=== PATIENT | female | born 1960 | race Caucasian/White ===

== ENCOUNTER → 2017-12-31 10:33 | Outpatient (CLI) | payer OTHER, SELFPAY ==
--- NOTE | 2017-12-31 | DI.MG.S_ITS ---
BILATERAL DIGITAL SCREENING MAMMOGRAM 3D/2D WITH CAD: 12/31/2017 CLINICAL: Routine screening. Family history of breast cancer. Comparison is made to exams dated: 04/06/2015 mammogram - [facility], 07/13/2009 mammogram, and 06/29/2009 mammogram - [facility]. There are scattered fibroglandular elements in both breasts. Current study was also evaluated with a Computer Aided Detection (CAD) system. No significant masses, calcifications, or other findings are seen in either breast. There has been no significant interval change. IMPRESSION: NEGATIVE There is no mammographic evidence of malignancy. A 1 year screening mammogram is recommended. This exam was interpreted at Station ID: [id number]. NOTE: For mammograms, a report in lay terms will be sent to the patient. Approximately 15% of breast malignancies will not be visualized mammographically. In the management of a palpable breast mass, a negative mammogram must not discourage biopsy of a clinically suspicious lesion. Electronically Signed By: Whitney buchanan/jhonatan:12/31/2017 12:46:40 letter sent: Normal Exam ACR BI-RADS Category 1: Negative 3341F
== END ==
PROVIDERS: PCP Nurse Practitioner Women's Health; Visit Provider Nurse Practitioner Women's Health
DX: Z12.31 Encounter for screening mammogram for malignant neoplasm of breast (principal); Z80.3 Family history of malignant neoplasm of breast
CPT/HCPCS: 77063; 77067

== ENCOUNTER → 2018-02-26 08:01 | Outpatient (CLI) | payer OTHER, SELFPAY ==
--- NOTE | 2018-02-26 | DI.MRI.S_ITS ---
PROCEDURE: MR FEMUR LT WO CON INDICATIONS: TROCHANTERIC BURSITIS OF LEFT HIP TECHNIQUE: Noncontrast coronal and sagittal T1 spin echo and STIR; axial T1 spin echo and T2 fast spin echo with fat saturation through the femur. COMPARISON: [facility], CR, XR PELVIS WITH BILATERAL HIPS 5 VIEWS, 02/10/2018, 9:02. FINDINGS: Image quality: Excellent. Bones: The visualized bone marrow demonstrates normal signal on all sequences. The overlying cortex appears intact. No fractures lines or intra-osseous lesions. Soft tissues: There is minimal left trochanteric bursal fluid/edema. The scanned muscles demonstrate normal overall bulk and internal signal. No soft tissue masses are present. IMPRESSION: Minimal left trochanteric bursal fluid/edema. Recommend clinical correlation. The Dictated by: Neri Rubio M.D. on 02/26/2018 at 8:01 Approved by: Neri Rubio M.D. on 02/26/2018 at 8:37
== END ==
PROVIDERS: PCP Nurse Practitioner Women's Health; Visit Provider Orthopaedic Surgery
DX: M70.62 Trochanteric bursitis, left hip (principal)
CPT/HCPCS: 73718

== ENCOUNTER → 2019-02-10 09:51 | Outpatient (CLI) | payer OTHER, SELFPAY ==
--- NOTE | 2019-02-10 | DI.RAD.S_ITS ---
PROCEDURE: XR WRIST RT 2V INDICATIONS: bilateral carpal tunnel TECHNIQUE: 2 views of the wrist were acquired. COMPARISON: [facility], CR, XR WRIST LT 2V, 02/10/2019, 10:19. FINDINGS: Bones: No fractures or dislocations. No suspicious bony lesions. Mild degenerative joint disease at the radiocarpal joint. Soft tissues: No suspicious soft tissue calcifications. Soft tissue swelling around the wrist. IMPRESSION: Mild degenerative joint disease. Dictated by: Jesse Lombardi M.D. on 02/10/2019 at 11:13 Approved by: Jesse Lombardi M.D. on 02/10/2019 at 11:14
--- NOTE | 2019-02-10 | DI.RAD.S_ITS ---
PROCEDURE: XR WRIST LT 2V INDICATIONS: bilateral carpal tunnel TECHNIQUE: 2 views of the wrist were acquired. COMPARISON: [facility], CR, XR HAND LT 2V, 02/10/2019, 10:18. FINDINGS: Bones: No fractures or dislocations. No suspicious bony lesions. Mild radiocarpal and first carpal metacarpal joint degeneration. Soft tissues: No suspicious soft tissue calcifications. IMPRESSION: Mild degenerative joint disease. Dictated by: Jesse Lombardi M.D. on 02/10/2019 at 11:17 Approved by: Jesse Lombardi M.D. on 02/10/2019 at 11:18
--- NOTE | 2019-02-10 | DI.RAD.S_ITS ---
PROCEDURE: XR HAND RT 2V INDICATIONS: bilateral carpal tunnel TECHNIQUE: 2 views of the hand(s) acquired. COMPARISON: [facility], CR, XR WRIST RT 2V, 02/10/2019, 10:16. FINDINGS: Bones: No fractures or dislocations. Carpal bones are normally aligned. No suspicious bony lesions. There is mild radiocarpal joint degeneration. Soft tissues: No suspicious soft tissue calcifications. IMPRESSION: Mild degenerative joint disease. Dictated by: Jesse Lombardi M.D. on 02/10/2019 at 11:18 Approved by: Jesse Lombardi M.D. on 02/10/2019 at 11:19
--- NOTE | 2019-02-10 | DI.RAD.S_ITS ---
PROCEDURE: XR HAND LT 2V INDICATIONS: bilateral carpal tunnel TECHNIQUE: 2 views of the hand(s) acquired. COMPARISON: [facility], CR, XR WRIST LT 2V, 02/10/2019, 10:19. FINDINGS: Bones: No fractures or dislocations. Carpal bones are normally aligned. No suspicious bony lesions. Mild radiocarpal joint degeneration. Soft tissues: No suspicious soft tissue calcifications. IMPRESSION: Mild degenerative joint disease. Dictated by: Jesse Lombardi M.D. on 02/10/2019 at 11:14 Approved by: Jesse Lombardi M.D. on 02/10/2019 at 11:15
[2019-02-10 10:58] LABS: Add Manual Diff / Slide Review NO; Basophils Absolute Auto 0 /uL (0-100); Basophils Percent Auto 0.4 % (0-2); Eosinophils Absolute Auto 100 /uL (0-450); Eosinophils Percent Auto 1.8 % (2-4); Hematocrit 43.7 % (36-46); Hemoglobin 14.5 g/dL (12.0-16.0); Lymphocytes Absolute Auto 1400 /uL (1100-4500); Lymphocytes Percent Auto 28.5 % (25-40); Mean Corpuscular HGB Conc 33.1 % (30-36); Mean Corpuscular Hemoglobin 30.4 PG (26-34); Mean Corpuscular Volume 91.8 fL (80-100); Monocytes Absolute Auto 300 /uL (0-900); Monocytes Percent Auto 5.7 % (3-14); Neutrophils Absolute Auto 3200 /uL (1500-7000); Neutrophils Percent Auto 63.6 % (50-75); Platelet Count 205 X10^3/uL (150-400); Red Blood Cell Count 4.77 X10^6/uL (4.0-5.2); Red Cell Distribution Width 14.1 % (11.6-14.8)
[2019-02-10 11:12] LABS: Alanine Aminotransferase 19 IU/L (9-52); Albumin 4.9 g/dL (3.5-5.0); Albumin Globulin Ratio 1.8 (1.0-2.8); Alkaline Phosphatase 68 U/L (38-126); Aspartate Aminotransferase 23 IU/L (14-36); BUN Creatinine Ratio 28.8 (6-22); Bilirubin Total 0.5 mg/dL (0.2-1.3); Blood Urea Nitrogen 23 mg/dL (7-17); C-Reactive Protein Quant 0.6 mg/dL (<1.0); Carbon Dioxide 28 mmol/L (22-32); Chloride 103 mmol/L (98-107); Cholesterol 249 mg/dL (140-199); Estimated Glomerular Filt Rate > 60.0 mL/min (>60); Globulin 2.8 g/dL (1.7-4.1); Glucose 81 mg/dL (80-110); HDL Cholesterol 84 mg/dL (40-60); HEMOLYSIS < 15 (0-50); LDL Cholesterol Calculated 155 mg/dL (<100); Potassium 4.5 mmol/L (3.4-5.1); Sodium 142 mmol/L (137-145); Total Protein 7.7 g/dL (6.3-8.2); Triglycerides 48 mg/dL (35-150)
[2019-02-10 11:15] LABS: Rheumatoid Factor < 8.6 IU/mL (<12.0)
[2019-02-10 11:27] LABS: Erythrocyte Sedimentation Rate 5 MM/HR (0-20)
== END ==
PROVIDERS: PCP Internal Medicine; Visit Provider Internal Medicine
DX: I10 Essential (primary) hypertension (principal); M25.539 Pain in unspecified wrist; R00.2 Palpitations; G56.03 Carpal tunnel syndrome, bilateral upper limbs; Z13.220 Encounter for screening for lipoid disorders
CPT/HCPCS: 36415; 73100; 73120; 80053; 80061; 85025; 85651; 86140; 86200; 86430

== ENCOUNTER → 2021-12-22 12:00 | Outpatient (CLI) | payer OTHER, SELFPAY ==
[2021-12-22 13:13] LABS: Hematocrit 42.2 % (36-46); Hemoglobin 14.2 g/dL (12.0-16.0); Mean Corpuscular HGB Conc 33.7 % (30-36); Mean Corpuscular Hemoglobin 31.2 PG (26-34); Mean Corpuscular Volume 92.6 fL (80-100); Platelet Count 243 X10^3/uL (150-400); Red Blood Cell Count 4.56 X10^6/uL (4.0-5.2); White Blood Cell Count 8.3 X10^3/uL (4.5-11.0)
[2021-12-22 13:55] LABS: Alanine Aminotransferase 20 IU/L (<35); Albumin Globulin Ratio 1.9 (1.0-2.8); Alkaline Phosphatase 72 U/L (38-126); Aspartate Aminotransferase 25 IU/L (14-36); BUN Creatinine Ratio 26.6 (6-22); Bilirubin Total 0.3 mg/dL (0.2-1.3); Blood Urea Nitrogen 21 mg/dL (7-17); Calcium 9.7 mg/dL (8.4-10.2); Carbon Dioxide 26 mmol/L (22-32); Chloride 105 mmol/L (98-107); Cholesterol 230 mg/dL (140-199); Estimated Glomerular Filt Rate > 60 mL/min (>60); Globulin 2.7 g/dL (1.7-4.1); Glucose 108 mg/dL (80-110); HDL Cholesterol 99 mg/dL (40-60); HEMOLYSIS < 15 (0-50); LDL Cholesterol Calculated 107 mg/dL (<100); Potassium 4.7 mmol/L (3.4-5.1); Sodium 140 mmol/L (137-145); Total Protein 7.7 g/dL (6.3-8.2); Triglycerides 120 mg/dL (35-150)
[2021-12-22 15:03] LABS: TSH w/ Reflex to FT4 0.89 uIU/mL (0.47-4.68)
== END ==
PROVIDERS: PCP Internal Medicine; Referring Provider Internal Medicine; Visit Provider Internal Medicine
DX: F33.9 Major depressive disorder, recurrent, unspecified (principal); I10 Essential (primary) hypertension
CPT/HCPCS: 36415; 80053; 80061; 84443; 85027

== ENCOUNTER → 2022-02-14 09:28 | Outpatient (CLI) | payer OTHER, SELFPAY ==
--- NOTE | 2022-02-14 | DI.MRI.S_ITS ---
PROCEDURE: MR SHOULDER RT WO CON INDICATIONS: Pain in right shoulder TECHNIQUE: Noncontrast oblique coronal T2 fast spin echo with fat saturation, oblique sagittal T1 spin echo and T2 fast spin echo with fat saturation, axial T1 spin echo and T2 fast spin echo with fat saturation through the shoulder. COMPARISON: [facility], CR, XR SHOULDER 2+ VIEWS RIGHT, 11/22/2021, 10:06. FINDINGS: Image quality: Excellent. Rotator cuff: The supraspinatus, infraspinatus, and subscapularis tendons appear intact throughout. Sagittal images demonstrate no muscle atrophy. Bones and bursae: Mild reactive signal within the anterior glenoid. No bone marrow contusions or fractures. Mild acromioclavicular joint degeneration. The acromion demonstrates conventional anatomy, without an os acromiale. A small amount of subacromial-subdeltoid or subcoracoid bursal fluid is present. Capsule and soft tissues: There is vague undercutting of the anterosuperior and anteroinferior labrum. The long head of the biceps tendon demonstrates normal location and morphology. The rotator interval appears normal, without fibrosis. The coracohumeral ligament is normal in thickness. IMPRESSION: 1. No rotator cuff tear. 2. Acromioclavicular joint osteoarthritis. 3. Findings suggestive of anterior labral tearing. 4. Mild subacromial bursitis. Dictated by: Mitch Acosta M.D. on 02/14/2022 at 11:17 Approved by: Mitch Acosta M.D. on 02/14/2022 at 11:19
== END ==
PROVIDERS: PCP Internal Medicine; Referring Provider Orthopaedic Surgery; Visit Provider Orthopaedic Surgery
DX: M19.011 Primary osteoarthritis, right shoulder (principal); M75.51 Bursitis of right shoulder; M25.511 Pain in right shoulder
CPT/HCPCS: 73221

== ENCOUNTER → 2022-03-16 16:04 | Outpatient (CLI) | payer OTHER, SELFPAY ==
[2022-03-16 17:43] LABS: BUN Creatinine Ratio 23.5 (6-22); Blood Urea Nitrogen 23 mg/dL (7-17); Calcium 9.8 mg/dL (8.4-10.2); Carbon Dioxide 31 mmol/L (22-32); Chloride 101 mmol/L (98-107); Estimated Glomerular Filt Rate > 60 mL/min (>60); Glucose 103 mg/dL (80-110); HEMOLYSIS < 15 (0-50); Potassium 4.9 mmol/L (3.4-5.1); Sodium 139 mmol/L (137-145)
== END ==
PROVIDERS: PCP Internal Medicine; Referring Provider Internal Medicine; Visit Provider Internal Medicine
DX: I10 Essential (primary) hypertension (principal)
CPT/HCPCS: 36415; 80048

== ENCOUNTER → 2022-05-21 15:33 | Outpatient (CLI) | payer OTHER, SELFPAY ==
--- NOTE | 2022-05-21 | DI.MG.S_ITS ---
BILATERAL DIGITAL SCREENING MAMMOGRAM 3D/2D WITH CAD: 05/21/2022 CLINICAL: Routine screening. Family history of breast cancer. Comparison is made to exams dated: 12/31/2017 mammogram, 04/06/2015 mammogram - [facility], and 07/13/2009 mammogram - [facility]. There are scattered areas of fibroglandular density in both breasts (category b / 25%-50% glandular tissue). Current study was also evaluated with a Computer Aided Detection (CAD) system. No significant masses, calcifications, or other findings are seen in either breast. There has been no significant interval change. IMPRESSION: NEGATIVE There is no mammographic evidence of malignancy. A 1 year screening mammogram is recommended. Based on the Tyrer Cuzick model (a risk assessment model) the patient's lifetime risk is 9.3% and her 10 year risk is 4.2%. According to the ACR, ACS, and NCCN guidelines, an annual breast MRI exam along with mammogram is recommended if the patient's lifetime risk is 20% or greater. This exam was interpreted at Station ID: [id number]. NOTE: For mammograms, a report in lay terms will be sent to the patient. Approximately 15% of breast malignancies will not be visualized mammographically. In the management of a palpable breast mass, a negative mammogram must not discourage biopsy of a clinically suspicious lesion. Electronically Signed By: Whitney buchanan/jhonatan:05/23/2022 13:19:35 letter sent: Normal Exam ACR BI-RADS Category 1: Negative 3341F
== END ==
PROVIDERS: PCP Internal Medicine; Referring Provider Internal Medicine; Visit Provider Internal Medicine
DX: Z12.31 Encounter for screening mammogram for malignant neoplasm of breast (principal); Z80.3 Family history of malignant neoplasm of breast
CPT/HCPCS: 77063; 77067

== ENCOUNTER → 2024-03-05 16:16 | Outpatient (CLI) | payer OTHER, SELFPAY ==
[2024-03-05 17:31] LABS: Aspartate Aminotransferase 24 IU/L (14-36); BUN Creatinine Ratio 34.9 (6-22); Blood Urea Nitrogen 30 mg/dL (7-17); Calcium 9.7 mg/dL (8.4-10.2); Carbon Dioxide 25 mmol/L (22-32); Chloride 106 mmol/L (98-107); Cholesterol 217 mg/dL (140-199); Estimated Glomerular Filt Rate > 60 mL/min (>60); Glucose 101 mg/dL (80-110); HDL Cholesterol 77 mg/dL (40-60); HEMOLYSIS < 15 (0-50); LDL Cholesterol Calculated 121 mg/dL (<100); Potassium 4.5 mmol/L (3.4-5.1); Sodium 138 mmol/L (137-145); Triglycerides 94 mg/dL (35-150)
[2024-03-05 18:03] LABS: TSH w/ Reflex to FT4 1.04 uIU/mL (0.47-4.68)
== END ==
PROVIDERS: PCP Internal Medicine; Referring Provider Internal Medicine; Visit Provider Internal Medicine
DX: E78.2 Mixed hyperlipidemia (principal); I87.2 Venous insufficiency (chronic) (peripheral)
CPT/HCPCS: 36415; 80048; 80061; 84443; 84450

== ENCOUNTER → 2024-04-03 09:11 | Outpatient (CLI) | payer OTHER, SELFPAY ==
--- NOTE | 2024-04-03 09:12 | DI.MG.S_ITS ---
BILATERAL DIGITAL SCREENING MAMMOGRAM 3D/2D WITH CAD: 04/03/2024 CLINICAL: Routine screening. Family history of breast cancer. Comparison is made to exams dated: 05/21/2022 mammogram, 12/31/2017 mammogram, and 04/06/2015 mammogram - [facility]. There are scattered areas of fibroglandular density in both breasts (category b / 25%-50% glandular tissue). Current study was also evaluated with a Computer Aided Detection (CAD) system. No significant masses, calcifications, or other findings are seen in either breast. There has been no significant interval change. IMPRESSION: NEGATIVE There is no mammographic evidence of malignancy. A 1 year screening mammogram is recommended. Based on the Tyrer Cuzick model (a risk assessment model) the patient's lifetime risk is 8.6% and her 10 year risk is 4.2%. According to the ACR, ACS, and NCCN guidelines, an annual breast MRI exam along with mammogram is recommended if the patient's lifetime risk is 20% or greater. This exam was interpreted at Station ID: [id number]. NOTE: For mammograms, a report in lay terms will be sent to the patient. Approximately 15% of breast malignancies will not be visualized mammographically. In the management of a palpable breast mass, a negative mammogram must not discourage biopsy of a clinically suspicious lesion. Electronically Signed By: Pepe powell/jhonatan:04/03/2024 14:28:13 letter sent: Normal Exam ACR BI-RADS Category 1: Negative 3341F
== END ==
LOC: MAMMO 09:11
PROVIDERS: PCP Internal Medicine; Referring Provider Internal Medicine; Visit Provider Internal Medicine
DX: Z12.31 Encounter for screening mammogram for malignant neoplasm of breast (principal); Z80.3 Family history of malignant neoplasm of breast
CPT/HCPCS: 77063; 77067

== ENCOUNTER → 2025-03-08 16:19 | Outpatient (CLI) | payer OTHER, SELFPAY ==
[2025-03-08 19:02] LABS: Blood Urea Nitrogen 26 mg/dL (7-17); Calcium 9.7 mg/dL (8.4-10.2); Carbon Dioxide 30 mmol/L (22-32); Chloride 100 mmol/L (98-107); Cholesterol 219 mg/dL (140-199); Estimated Glomerular Filt Rate > 60 mL/min (>60); Glucose 82 mg/dL (70-99); HDL Cholesterol 76 mg/dL (40-60); HEMOLYSIS < 15 (0-50); Potassium 4.5 mmol/L (3.4-5.1); Sodium 138 mmol/L (137-145); Triglycerides 77 mg/dL (35-150)
== END ==
PROVIDERS: PCP Internal Medicine; Referring Provider Internal Medicine; Visit Provider Internal Medicine
DX: I10 Essential (primary) hypertension (principal); E78.2 Mixed hyperlipidemia
CPT/HCPCS: 36415; 80048; 80061; 84450

== ENCOUNTER → 2025-04-14 08:09 | Outpatient (CLI) | payer OTHER, SELFPAY ==
--- NOTE | 2025-04-14 08:10 | DI.MG.S_ITS ---
MM screening mammo BI: 04/14/2025. BI-RADS: 1 CLINICAL: 64-year old female for bilateral screening mammogram. Tyrer-Cuzick lifetime risk of 8.2%. No personal or first-degree family history of breast cancer. Current reported family history of breast cancer: maternal aunt. PRIOR EXAMS 04/03/2024, 05/21/2022, 12/31/2017. MAMMOGRAPHY TECHNIQUE: 2D and 3D (tomosynthesis) digital mammographic views obtained, with additional images as needed for full coverage. Current study was also evaluated with a Computer Aided Detection (CAD) system. DENSITY B. There are scattered areas of fibroglandular density. MAMMOGRAPHY FINDINGS Bilateral: No suspicious mass, asymmetry, microcalcification, or other abnormality seen. IMPRESSION: * No evidence of malignancy. RECOMMENDATIONS Bilateral * Annual screening mammography. OVERALL ASSESSMENT CATEGORY BI-RADS-1: Negative. The [employer] recommends annual screening mammography beginning at age 40 for women with average risk of breast cancer. ELECTRONICALLY SIGNED: Violetta Tuttle M.D. on 04/14/2025 at 12:35:17 PM PT Interpreting Station ID: [id number]
== END ==
LOC: MAMMO 08:10
PROVIDERS: PCP Internal Medicine; Referring Provider Internal Medicine; Visit Provider Internal Medicine
DX: Z12.31 Encounter for screening mammogram for malignant neoplasm of breast (principal); Z80.3 Family history of malignant neoplasm of breast
CPT/HCPCS: 77063; 77067

== ENCOUNTER 2025-04-21 09:46 | Day surgery (SDC) | payer OTHER, SELFPAY ==
[2025-04-21 10:12] VITALS: BP 148/88; PULSE 92; RESP 16; TEMP 36.8; O2SAT 95
[2025-04-21] MEDS: LACTATED RINGERS 1,000 ML 42 ML IV (10:31)
--- NOTE | 2025-04-21 10:41 | PM.HP.IH.1 ---
History of Present Illness History of Present Illness Date Patient Seen: 04/21/25 Chief complaint: SDC Narrative: First screening colonoscopy [facility] Medical History Carpal tunnel syndrome Depression, major, recurrent Essential hypertension Fractures Gastric ulcer (~2008) GERD without esophagitis Migraines Mixed hyperlipidemia Obesity (BMI 30.0-34.9) Overweight Primary osteoarthritis involving multiple joints Varicose veins of bilateral lower extremities with pain Venous (peripheral) insufficiency Surgical History Anesthesia Status post rotator cuff repair Family History Father Cancer Mother Cancer Hypertension Brother Diabetes mellitus Brother History of heart disease Social History details: (Pascual, 12/27/2022), daughter Smoking Status: Never smoker alcohol intake: current Meds Home Medications and Allergies Home Medications ?Medication ?Instructions ?Recorded ?Confirmed ?Type celecoxib 200 mg capsule (Celebrex) 200 mg PO DAILY #90 caps 03/05/24 04/21/25 Rx losartan 50 mg tablet 50 mg PO DAILY #90 tabs 03/05/24 04/21/25 Rx escitalopram oxalate 10 mg tablet 10 mg PO DAILY #90 tabs 03/15/25 Rx mirtazapine 30 mg tablet 30 mg PO BEDTIME #90 tabs 03/15/25 04/21/25 Rx trazodone 50 mg tablet 50 - 100 mg (1 - 2 x 50 mg) PO 04/15/25 04/21/25 Rx BEDTIME PRN sleep #60 tabs Allergies Allergy/AdvReac Type Severity Reaction Status Date / Time Penicillins (PENICILLINS) Allergy Unknown Verified 04/21/25 10:11 Exam Vital Signs (past 8 hours): - 04/21/25 10:12 Temperature 98.3 F Pulse Rate 92 H Respiratory Rate 16 Blood Pressure 148/88 H Pulse Oximetry 95 Oxygen Delivery Method Room Air Oxygen Delivery Method Room Air Narrative Exam Narrative: Oropharynx free of lesions Chest clear to auscultation percussion Cardiac exam reveals no S3 or murmur Assessment & Plan Assessment & Plan narrative: Patient with need for 1st screening colonoscopy. Currently asymptomatic. Risks, benefits, alternatives have been explained. Time-Based Coding :: [TOTAL MINUTES] spent with patient and on the chart (including review of chart, obtaining history, exam, reviewing outside data, placing orders, documenting exam and treatment plan, and counseling patient) on [DATE]. [employer] Document charge(s): No
--- NOTE | 2025-04-21 10:44 | PM.OP.COLON ---
Operative Date/Time/Diagnoses Date of procedure: 04/21/25 Time of procedure: 11:15 Pre-op diagnosis: See indication and findings Post-op diagnosis: same Procedure & Clinicians Study performed: Colonoscopy Same procedure(s) as scheduled: Yes Indications: For screening procedure Surgeon: Lavinia Chaidez Anesthesia Type: Other Procedure Notes Procedure in detail: After informed consent was obtained the patient was placed in left lateral decubitus position. The video colonoscope was introduced the rectum slowly advanced cecum. Preparation was good. On slow withdrawal, the mucosa was carefully examined. The scope was removed. The patient tolerated the procedure well. Blood loss none Complications none Sedation mac Findings 1. Normal colonoscopy to cecum Patient should have follow-up colonoscopy in 10 years
[2025-04-21 11:10] VITALS: BP 100/51; PULSE 72; RESP 14; TEMP 36.2; O2SAT 96
[2025-04-21 11:15] VITALS: BP 105/54; PULSE 70; RESP 16; TEMP 36.3; O2SAT 98
[2025-04-21 11:20] VITALS: BP 107/58; PULSE 62; RESP 12; O2SAT 96
[2025-04-21 11:27] VITALS: BP 115/60; PULSE 62; RESP 16; TEMP 36.3; O2SAT 96
== END 2025-04-21 12:00 | disposition home or self-care (01) ==
PROVIDERS: PCP Internal Medicine; Referring Provider Internal Medicine Gastroenterology; Visit Provider Internal Medicine Gastroenterology
PROC: 0DJD8ZZ Inspection of Lower Intestinal Tract, Via Natural or Artificial Opening Endoscopic (ICD-10-PCS; CPT 45378; principal; 2025-04-21 11:00)
DX: Z12.11 Encounter for screening for malignant neoplasm of colon (principal)
CPT/HCPCS: G0121; J2704